=== PATIENT | female | born 1930 | race Caucasian/White ===

== ENCOUNTER 2018-11-15 11:18 | Emergency (ER) | payer BC ==
--- NOTE | 2018-11-15 12:44 | RAD ---
FOUR VIEWS RIGHT KNEE: 11/15/18 HISTORY: Right hip fracture. COMPARISON: None. FINDINGS: No fracture. No cortical irregularity or periosteal reaction. No joint effusion. Vascular calcificati ons are noted. IMPRESSION: No fracture. POS: OFF
[2018-11-15 13:44] LABS: #Eosinphils 0.1 thou/uL (0.0-0.7); #Lymphocytes 1.2 thou/uL (1.20-3.40); #Monocytes 1.5 thou/uL (0.11-0.59); #Neutrophils 11.3 thou/uL (1.40-6.50); %Basophils 0.3 % (0.0-1.0); %Eosinophils 0.5 % (0.0-10.0); %Lymphocytes 8.4 % (21.0-51.0); %Monocytes 10.5 % (0.0-10.0); %Neutrophils 80.3 % (42.0-75.0); Hemoglobin 9.7 g/dL (12.0-16.0); Mean Corpuscular HGB CONC 33.7 g/dL (32.0-36.0); Mean Corpuscular Hemoglobin 32.3 pg (27.0-31.0); Mean Corpuscular Volume 95.9 fL (78.0-98.0); Mean Platelet Volume 8.1 fL (7.4-10.4); Platelet Count 359 thou/uL (130-400); RBC Distribution Width 12.6 % (11.5-14.5); Red Blood Cell (RBC) Count 3.02 mill/uL (4.20-5.40); White Blood Cell (WBC) Count 14.1 thou/uL (4.8-10.8)
[2018-11-15 14:12] LABS: ALT (SGPT) 14 U/L (8-55); AST (SGOT) 32 U/L (5-34); Albumin 3.7 g/dL (3.4-4.8); Alkaline Phosphatase 156 U/L (40-150); Anion Gap 17 mmol/L (10-20); BUN (Urea Nitrogen) 19 mg/dL (9.8-20.1); Bilirubin, Total 0.4 mg/dL (0.2-1.2); Calc. Creatinine Clearance 0 mL/min (70-130); Calcium 9.6 mg/dL (7.8-10.44); Carbon Dioxide 21 mmol/L (23-31); Chloride 103 mmol/L (98-107); Estimated GFR-MDRD 57; Globulin 3.5 g/dL (2.4-3.5); Glucose 91 mg/dL (83-110); Potassium 4.2 mmol/L (3.5-5.1); Protein, Total 7.2 g/dL (6.0-8.3); Sodium 137 mmol/L (136-145)
[2018-11-15] MEDS ORDERED: HYDROcodone/Acetaminophen 5/325 mg Tablet ONE (14:49)
== END 2018-11-15 15:08 ==
LOC: ERS 11:18
DX: S72.102A Unspecified trochanteric fracture of left femur, initial encounter for closed fracture (principal); E03.9 Hypothyroidism, unspecified; I10 Essential (primary) hypertension; Z79.899 Other long term (current) drug therapy; W19.XXXA Unspecified fall, initial encounter
CPT/HCPCS: 36415; 80053; 85025; 86850; 86900; 86901; 99284

== ENCOUNTER 2018-11-24 11:09 | Inpatient (IN) | payer BC ==
[2018-11-24 11:53] LABS: #Eosinphils 0.1 thou/uL (0.0-0.7); #Monocytes 1.2 thou/uL (0.11-0.59); #Neutrophils 7.9 thou/uL (1.40-6.50); %Basophils 0.4 % (0.0-1.0); %Eosinophils 1.1 % (0.0-10.0); %Lymphocytes 10.1 % (21.0-51.0); %Monocytes 11.6 % (0.0-10.0); %Neutrophils 76.7 % (42.0-75.0); Hemoglobin 8.5 g/dL (12.0-16.0); Mean Corpuscular HGB CONC 32.6 g/dL (32.0-36.0); Mean Corpuscular Hemoglobin 30.8 pg (27.0-31.0); Mean Corpuscular Volume 94.5 fL (78.0-98.0); Mean Platelet Volume 7.5 fL (7.4-10.4); Platelet Count 385 thou/uL (130-400); RBC Distribution Width 12.9 % (11.5-14.5); Red Blood Cell (RBC) Count 2.77 mill/uL (4.20-5.40); White Blood Cell (WBC) Count 10.3 thou/uL (4.8-10.8)
[2018-11-24 12:13] LABS: ALT (SGPT) 20 U/L (8-55); AST (SGOT) 39 U/L (5-34); Albumin 3.2 g/dL (3.4-4.8); Alkaline Phosphatase 157 U/L (40-150); Anion Gap 13 mmol/L (10-20); BUN (Urea Nitrogen) 29 mg/dL (9.8-20.1); Bilirubin, Total 0.3 mg/dL (0.2-1.2); Calc. Creatinine Clearance 0 mL/min (70-130); Calcium 9.2 mg/dL (7.8-10.44); Carbon Dioxide 23 mmol/L (23-31); Chloride 105 mmol/L (98-107); Estimated GFR-MDRD 53; Globulin 3.3 g/dL (2.4-3.5); Glucose 115 mg/dL (83-110); Potassium 4.5 mmol/L (3.5-5.1); Protein, Total 6.5 g/dL (6.0-8.3); Sodium 136 mmol/L (136-145)
[2018-11-24] MEDS ORDERED: Ketorolac Tromethamine 60 MG/2 ML VIAL ONE (12:20)
[2018-11-24] MEDS ORDERED: Ketamine 50 MG/ML (10ML VIAL) ONE (12:22)
[2018-11-24 13:21] LABS: INR-International Normal Ratio 1.1; Prothrombin Time 13.9 SEC (12.0-14.7)
--- NOTE | 2018-11-24 13:21 | RAD ---
RIGHT HIP: Single portable AP projection obtained. INDICATION: Attempt at post reduction hip dislocation. FINDINGS/IMPRESSION: Right hip prosthesis is noted. There is dislocation of the hip joint components with superior disloca tion of the femoral component in relation to the acetabular component seen on the AP projection. POS: [facility]
[2018-11-24 13:22] LABS: PTT 30.4 SEC (22.9-36.1)
--- NOTE | 2018-11-24 13:23 | RAD ---
PORTABLE CHEST: Date: 11/24/18 HISTORY: Chest pain, shortness of breath. No comparison. FINDINGS: Mild cardiomegaly. Transvenous pacemaker leads appear adequately positioned. The lung [place] are yefri r of infiltrate. No evidence of vascular congestion or effusion. IMPRESSION: Cardiomegaly. No acute lung process. POS: [facility]
--- NOTE | 2018-11-24 13:24 | RAD ---
RIGHT HIP 1 VIEW: Date: 11/24/18 INDICATION: Post attempted reduction of hip dislocation. Comparison made to earlier film. FINDINGS/IMPRESSION: There continues to be dislocation of the right hip prosthesis, unchanged from earlier exam. POS: [facility]
[2018-11-24] MEDS ORDERED: Ondansetron PF 4 MG/2 ML Vial IV PRN (15:51)
[2018-11-24] MEDS ORDERED: HYDROcodone/Acetaminophen 5/325 mg Tablet PO PRN ×2 (15:51)
[2018-11-24] MEDS ORDERED: Morphine 4 MG/ML VIAL SLOW IVP PRN (15:51)
[2018-11-24] MEDS ORDERED: Communication Order-Pharmacy FS SCH (16:00)
[2018-11-24] MEDS ORDERED: Morphine 2 MG/ML SYRINGE IVP PRN (17:45)
[2018-11-24 18:26] VITALS: BMI 26.5
[2018-11-24] MEDS ORDERED: Prevnar 13-Val Conj/PF 0.5 ML SYRINGE IM ONE (21:00)
[2018-11-24] MEDS: Sodium Chloride 0.9% 1,000 ML IV SCH (23:38)
--- NOTE | 2018-11-25 08:45 | PDOC.HOSPP ---
- Subjective Encounter Date: 11/25/18 Encounter Time: 08:43 Subjective: Patient seen and examined for med mngt. No CP/SOB or palpitations. Follows Dr. Connelly. No new complaints. No overnight events - Objective Vital Signs & Weight: Vital Signs (12 hours) Temp Pulse Resp BP Pulse Ox 11/25/18 08:12 98.4 F 80 20 164/77 H 97 11/25/18 03:40 98.3 F 91 16 176/80 H 97 11/25/18 00:03 98.4 F 80 16 123/69 95 Weight Weight 145 lb 4.554 oz Result Diagrams: 11/24/18 11:30 11/24/18 11:30 EKG Reviewed by me: Yes (Paced) ROS - Review of Systems Respiratory: denies: cough, dry, shortness of breath, hemoptysis, SOB with excertion, pleuritic pain, sputum, wheezing, other Cardiovascular: denies: chest pain, palpitations, orthopnea, paroxysmal noc. dyspnea, edema, light headedness, other Gastrointestinal: denies: nausea, vomitting, abdominal pain, diarrhea, constipation, melena, hematochezia, other Genitourinary: denies: dysuria, frequency, incontinence, hematuria, retention, other - Medication Medications: Active Medications Generic Name Dose Route Start Last Admin Trade Name Freq PRN Reason Stop Dose Admin Sodium Chloride 1,000 mls @ 100 mls/hr 11/24/18 23:59 11/24/18 23:38 Normal Saline 0.9% IV 1,000 mls .Q10H MITCH Administration - Exam NAD Neck: supple, no JVD Heart: RRR, no gallops Respiratory: CTAB, no rales Gastrointestinal: soft, non-tender, non-distended, normal bowel sounds Extremities: no edema Hosp A/P (1) HTN (hypertension) Code(s): I10 - ESSENTIAL (PRIMARY) HYPERTENSION (2) HLD (hyperlipidemia) Code(s): E78.5 - HYPERLIPIDEMIA, UNSPECIFIED (3) CKD (chronic kidney disease) stage 3, GFR 30-59 ml/min Code(s): N18.3 - CHRONIC KIDNEY DISEASE, STAGE 3 (MODERATE) (4) Anxiety Code(s): F41.9 - ANXIETY DISORDER, UNSPECIFIED (5) Chronic anemia Code(s): D64.9 - ANEMIA, UNSPECIFIED (6) Status cardiac pacemaker - Plan incentive spirometry, DVT proph w/SCDs Resume Celexa Resume Levothyroxine CBC in AM Pain control per Anesthesia SCDs for DVT prophylaxis Add PRN meds Full code. DPOA - daughter
[2018-11-25] MEDS ORDERED: Labetalol HCl 100 MG/20 ML VIAL SLOW IVP PRN (08:47)
[2018-11-25] MEDS ORDERED: Polyethylene Glycol 3350 17 GM Packet PO PRN (08:47)
--- NOTE | 2018-11-25 08:59 | HP ---
HISTORY OF PRESENT ILLNESS: Ms. Parsons is an 88-year-old white female, who underwent a right total hip replacement on 11/01/2018. The patient did well postoperatively in the hospital. She went to rehab, where she got out of bed and was trying to reach in her closet and fell resulting in fracture of the right proximal femur. The patient was seen by me in the office. The hip was in good position and well located, proximal femur to heal. The patient apparently had another injury to the right hip earlier this morning and dislocated her hip. She was sent to the emergency room, where the hip was reduced, but then immediately redislocated. X-ray shows comminuted fracture of the proximal femur around the prosthesis with turning of the prosthesis indicating instability. The patient has no neurologic complaints in the right lower extremity. PAST MEDICAL HISTORY: ALLERGIES: NONE. CURRENT MEDICATIONS: 1. Premarin. 2. Citalopram. 3. Meloxicam. 4. Levothyroxine. PHYSICAL EXAMINATION: GENERAL: The patient is a very pleasant white female, alert and oriented x3. VITAL SIGNS: Blood pressure 125/65, pulse 76, respiratory rate 16, temperature 98.8. HEENT: Unremarkable for age. Cranial nerves 2 through 12 are grossly intact. NECK: Has good range of motion without pain. Thoracic lumbar spine, nontender to palpation. LUNGS: Clear bilaterally. HEART: Regular rate and rhythm. ABDOMEN: Soft and nontender. Bowel sounds positive. : Not done. EXTREMITIES: The patient is able to move both upper extremities without pain. The right lower extremity is shortened and externally rotated. Right lower extremity is neurovascularly intact. She is able to move her left lower extremity without pain except in the right hip region. LABORATORY DATA: CBC shows white count 10.3, hemoglobin 8.5, hematocrit 21.6. PT normal at 13.9 with INR of 1.1, PTT 30.4. Chemistries show a slightly elevated BUN of 29, creatinine is normal at 1.99, alkaline phosphatase high at 157. Albumin is slightly low at 3.2. Remaining values are normal. DIAGNOSTIC DATA: X-ray of the right hip shows fractures around the proximal aspect of the femur around the prosthesis. The femoral component is rotated and dislocated superiorly and posteriorly. IMPRESSION: Status post right total hip replacement, now with loose and dislocated femoral component. PLAN: The patient will be admitted for pain control. We will consult the hospitalist for medical evaluation and surgical clearance. As far as her right hip is concerned, the patient will require additional surgery. Plan on removing the proximal femur and revising that probably with a cemented proximal femoral component. Discussed the plans with the patient and her daughter and they agree. We will schedule surgery for tomorrow. Job ID: [id number]
[2018-11-25] MEDS ORDERED: ceFAZolin Sodium (SDC) 2 GM/100 ML BAG ONE (12:43)
[2018-11-25] MEDS ORDERED: Fentanyl 100 MCG/2 ML VIAL ONE (13:33)
[2018-11-25] MEDS ORDERED: Neomycin-Polymyxin 1 ML AMP ONE (13:34)
[2018-11-25] MEDS ORDERED: HYDROcodone/Acetaminophen 10/325 mg Tablet PO PRN (15:28)
[2018-11-25] MEDS ORDERED: Promethazine HCl 25 MG/ML VIAL IM PRN (15:31)
[2018-11-25] MEDS ORDERED: Promethazine HCl 25 MG/ML VIAL SLOW IVP PRN (15:31)
[2018-11-25] MEDS ORDERED: Ondansetron HCl/PF 4 MG/2 ML Vial IVP PRN (15:31)
[2018-11-25] MEDS ORDERED: TETANUS AND DIPHTHERIA TOX/PF 0.5 ML DISP.SYRIN IM SCH (16:00)
[2018-11-25] MEDS: Senokot S 8.6-50 MG TAB PO SCH ×2 (16:30→18:15)
[2018-11-25] MEDS: Citalopram 20 MG TAB PO SCH ×2 (16:30→18:39)
[2018-11-25] MEDS: Sodium Chloride 0.9% 1,000 ML IV SCH ×2 (16:30→19:56)
[2018-11-25] MEDS ORDERED: Bupivacaine HCl 0.5%/Epinephrine 1:200,000/PF 30 ml Vial ONE (16:57)
[2018-11-25] MEDS ORDERED: Ketorolac Tromethamine 30 MG/ML VIAL IVP SCH (18:00)
--- NOTE | 2018-11-25 18:00 | RAD ---
LEFT HIP: INDICATIONS: Imaging during surgical procedure for hip replacement. FINDINGS: Five fluoroscopic images from the OR are presented. These images show a left hip prosthesis, which appears adequately positioned. POS: [facility]
[2018-11-25] MEDS: Sodium Chloride 0.9% 100 ML IV SCH ×2 (19:57→19:58)
[2018-11-25] MEDS: traZODone HCl 50 MG TAB PO PRN (21:12)
--- NOTE | 2018-11-25 21:46 | OP ---
DATE OF PROCEDURE: 11/25/2018 PREOPERATIVE DIAGNOSIS: The patient is status post right total hip replacement with fracture of the right proximal femur and dislocation of the right hip. POSTOPERATIVE DIAGNOSIS: The patient is status post right total hip replacement with fracture of the right proximal femur and dislocation of the right hip with traumatic loosening of the femoral component. PROCEDURE: Revision right total hip replacement with replacement of the right proximal femur. ANESTHESIA: General. DESCRIPTION OF PROCEDURE: The patient was given preoperative IV antibiotics, taken to the operating room, placed in supine position. Satisfactory general anesthesia was performed. The patient was then placed in the left lateral decubitus position. All bony prominences were well padded. The right hip and lower extremity were sterilely prepped and draped in the usual fashion. A longitudinal incision was made over the lateral aspect of the hip over the previous incision that she had from a total hip replacement that was performed a little over 3 weeks ago. Blunt and sharp dissection was made down to the iliotibial band, which was divided longitudinally. The anterior fibers of the gluteus muscles were opened. The proximal femur was fractured and the femoral prosthesis was dislocated. The femoral stem was very loose and was able to be easily removed. The fracture of the proximal femur extended longitudinally down approximately 5 cm. The proximal femur was exposed. The acetabulum was inspected and was in good condition and in good position and did not need any additional treatment. The proximal femur was then reamed up to 15 mm. A DonJoy 15 mm x 130 mm distal stem, which was straight was placed into the proximal femur with excellent fit in the canal. It was very stable. A standard offset body with the 75-mm proximal belly with a neutral neck was inserted and different lengths were trialed and the patient had good leg length faith and good stability with the standard offset 75 mm proximal body and the 32 mm femoral head with a neutral neck. The trial was removed. The hip joint was copiously irrigated with antibiotic solution using the high-speed active directory engineer and the DonJoy implant was placed using the 75-mm proximal body with a standard offset. This was locked in with a bolt into the distal stem and the 32-mm neutral femoral head was impacted over this. The hip was reduced and placed through range of motion while observing the hip using the C-arm under fluoroscopy and showed good position of the prosthesis. A 1.7 mm cable was placed around the proximal femur and good stability and crimped. Excess cable was removed and #2 FiberWire was also used to bring the fracture closer together. Again, this was all reviewed with the C-arm with fluoroscopy and showed good positioning. The wound was then again copiously irrigated. It was closed using #2 Vicryl for the anterior fibers of the abductor muscles, #2 Vicryl for the iliotibial band, Vicryl for the fat and subcutaneous tissue, and skin was closed with skin vanessa. Sterile dressing was applied. The patient was then awakened, extubated, and transferred to recovery room in stable condition. ESTIMATED BLOOD LOSS: 400 mL. COMPLICATIONS: None. Job ID: [id number]
[2018-11-26] MEDS: Sodium Chloride 0.9% 1,000 ML IV SCH ×2 (06:28→17:46)
[2018-11-26] MEDS: Levothyroxine Sodium 25 MCG TAB PO SCH (06:40)
[2018-11-26] MEDS: HYDROcodone/Acetaminophen 10/325 mg Tablet PO PRN ×2 (06:40→20:40)
[2018-11-26 08:19] LABS: Hemoglobin 9.5 g/dL (12.0-16.0); Mean Corpuscular HGB CONC 33.7 g/dL (32.0-36.0); Mean Corpuscular Volume 95.1 fL (78.0-98.0); Mean Platelet Volume 6.9 fL (7.4-10.4); Platelet Count 290 thou/uL (130-400); Red Blood Cell (RBC) Count 2.95 mill/uL (4.20-5.40)
[2018-11-26] MEDS: Citalopram 20 MG TAB PO SCH (08:27)
[2018-11-26] MEDS: Senokot S 8.6-50 MG TAB PO SCH ×2 (08:33→20:42)
--- NOTE | 2018-11-26 11:00 | PDOC.HOSPP ---
- Subjective Encounter Date: 11/26/18 Encounter Time: 09:30 Subjective: Patient seen and examined for med mngt. No fever/chills/N/V. No new complaints. No overnight events - Objective Vital Signs & Weight: Vital Signs (12 hours) Temp Pulse Pulse Resp BP BP Pulse Ox 11/26/18 08:00 97 11/26/18 07:55 98.2 F 74 20 113/50 L 97 11/26/18 04:16 98 11/26/18 03:15 98.3 F 81 16 152/80 H 99 11/26/18 01:05 98.4 F 78 16 145/76 H 97 11/25/18 23:34 98.7 F 74 16 126/64 97 Weight Weight 145 lb 4.554 oz I&O: 11/25/18 11/26/18 11/27/18 06:59 06:59 06:59 Intake Total 1900 Output Total 550 Balance 1350 Result Diagrams: 11/27/18 04:49 11/24/18 11:30 ROS - Review of Systems Respiratory: denies: cough, dry, shortness of breath, hemoptysis, SOB with excertion, pleuritic pain, sputum, wheezing, other Cardiovascular: denies: chest pain, palpitations, orthopnea, paroxysmal noc. dyspnea, edema, light headedness, other - Medication Medications: Active Medications Generic Name Dose Route Start Last Admin Trade Name Freq PRN Reason Stop Dose Admin Hydrocodone Bitart/Acetaminophen 1 tab 11/25/18 15:28 11/25/18 21:12 [place] 10/325 PO 1 tab Q4H PRN Administration Moderate Pain (4-6) Hydrocodone Bitart/Acetaminophen 2 tab 11/25/18 15:28 11/26/18 06:40 [place] 10/325 PO 2 tab Q4H PRN Administration Severe Pain (7-10) Citalopram Hydrobromide 40 mg 11/25/18 09:00 11/26/18 08:27 Celexa PO 40 mg DAILY MITCH Administration Sodium Chloride 1,000 mls @ 100 mls/hr 11/24/18 23:59 11/26/18 06:28 Normal Saline 0.9% IV Not Given .Q10H MITCH Levothyroxine Sodium 25 mcg 11/26/18 06:00 11/26/18 06:40 Synthroid PO 25 mcg 0600 MITCH Administration Senna/Docusate Sodium 2 tab 11/25/18 09:00 11/26/18 08:33 Senokot S PO Not Given BID MITCH Trazodone HCl 50 mg 11/25/18 08:31 11/25/18 21:12 Desyrel PO 50 mg HSPRN PRN Administration Insomnia - Exam NAD Neck: supple, no JVD Heart: RRR, no gallops Respiratory: CTAB, no rales Gastrointestinal: soft, non-distended, normal bowel sounds Extremities: no edema Hosp A/P (1) HTN (hypertension) Code(s): I10 - ESSENTIAL (PRIMARY) HYPERTENSION (2) HLD (hyperlipidemia) Code(s): E78.5 - HYPERLIPIDEMIA, UNSPECIFIED (3) CKD (chronic kidney disease) stage 3, GFR 30-59 ml/min Code(s): N18.3 - CHRONIC KIDNEY DISEASE, STAGE 3 (MODERATE) (4) Anxiety Code(s): F41.9 - ANXIETY DISORDER, UNSPECIFIED (5) Chronic anemia Code(s): D64.9 - ANEMIA, UNSPECIFIED (6) Status cardiac pacemaker - Plan DVT proph w/lovenox Cont Celexa/Levothyroxine Pain control Cont other meds as above Cont PRN meds
[2018-11-26] MEDS: traZODone HCl 50 MG TAB PO PRN (20:40)
[2018-11-27] MEDS: Sodium Chloride 0.9% 1,000 ML IV SCH ×4 (01:56→22:01)
[2018-11-27 05:10] LABS: Hemoglobin 9.5 g/dL (12.0-16.0); Mean Corpuscular HGB CONC 34.1 g/dL (32.0-36.0); Mean Corpuscular Hemoglobin 32.6 pg (27.0-31.0); Mean Corpuscular Volume 95.7 fL (78.0-98.0); Mean Platelet Volume 7.1 fL (7.4-10.4); Platelet Count 290 thou/uL (130-400); RBC Distribution Width 13.2 % (11.5-14.5)
[2018-11-27] MEDS: Levothyroxine Sodium 25 MCG TAB PO SCH (06:19)
[2018-11-27] MEDS: Senokot S 8.6-50 MG TAB PO SCH ×2 (08:06→20:16)
[2018-11-27] MEDS: Citalopram 20 MG TAB PO SCH (08:06)
--- NOTE | 2018-11-27 09:25 | PDOC.HOSPP ---
- Subjective Encounter Date: 11/27/18 Encounter Time: 09:00 Subjective: Patient seen and examined for medical mngt. No CP/SOB. Pain controlled. No N/V or constipation. No new complaints. No overnight events - Objective Vital Signs & Weight: Vital Signs (12 hours) Temp Pulse Resp BP Pulse Ox 11/27/18 07:16 98.5 F 77 16 155/80 H 96 11/27/18 02:54 98.2 F 75 16 156/81 H 98 11/26/18 23:15 98 F 76 16 137/64 95 Weight Weight 145 lb 4.554 oz I&O: 11/26/18 11/27/18 11/28/18 06:59 06:59 06:59 Intake Total 1900 240 Output Total 550 1850 Balance 1350 -1610 Result Diagrams: 11/27/18 04:49 11/24/18 11:30 ROS - Review of Systems Respiratory: denies: cough, dry, shortness of breath, hemoptysis, SOB with excertion, pleuritic pain, sputum, wheezing, other Cardiovascular: denies: chest pain, palpitations, orthopnea, paroxysmal noc. dyspnea, edema, light headedness, other - Medication Medications: Active Medications Generic Name Dose Route Start Last Admin Trade Name Freq PRN Reason Stop Dose Admin Hydrocodone Bitart/Acetaminophen 1 tab 11/25/18 15:28 11/25/18 21:12 [place] 10/325 PO 1 tab Q4H PRN Administration Moderate Pain (4-6) Hydrocodone Bitart/Acetaminophen 2 tab 11/25/18 15:28 11/26/18 20:40 [place] 10/325 PO 2 tab Q4H PRN Administration Severe Pain (7-10) Citalopram Hydrobromide 40 mg 11/25/18 09:00 11/27/18 08:06 Celexa PO 40 mg DAILY MITCH Administration Sodium Chloride 1,000 mls @ 100 mls/hr 11/24/18 23:59 11/27/18 01:56 Normal Saline 0.9% IV Not Given .Q10H MITCH Levothyroxine Sodium 25 mcg 11/26/18 06:00 11/27/18 06:19 Synthroid PO 25 mcg 0600 MITCH Administration Senna/Docusate Sodium 2 tab 11/25/18 09:00 11/27/18 08:06 Senokot S PO Not Given BID MITCH Trazodone HCl 50 mg 11/25/18 08:31 11/26/18 20:40 Desyrel PO 50 mg HSPRN PRN Administration Insomnia - Exam NAD Neck: supple, no JVD Heart: RRR, no rubs Respiratory: CTAB, no rales Gastrointestinal: soft, non-tender, normal bowel sounds Extremities: no edema Hosp A/P (1) HTN (hypertension) Code(s): I10 - ESSENTIAL (PRIMARY) HYPERTENSION Status: Chronic (2) HLD (hyperlipidemia) Code(s): E78.5 - HYPERLIPIDEMIA, UNSPECIFIED Status: Chronic (3) CKD (chronic kidney disease) stage 3, GFR 30-59 ml/min Code(s): N18.3 - CHRONIC KIDNEY DISEASE, STAGE 3 (MODERATE) Status: Chronic (4) Anxiety Code(s): F41.9 - ANXIETY DISORDER, UNSPECIFIED Status: Chronic (5) Chronic anemia Code(s): D64.9 - ANEMIA, UNSPECIFIED Status: Chronic (6) Status cardiac pacemaker Status: Chronic - Plan DVT proph w/SCDs Cont home meds - Celexa/Levothyroxine Pain control per primary service Cont other meds as above
[2018-11-27] MEDS: traZODone HCl 50 MG TAB PO PRN (20:14)
[2018-11-27] MEDS: HYDROcodone/Acetaminophen 10/325 mg Tablet PO PRN (20:15)
[2018-11-28] MEDS: Levothyroxine Sodium 25 MCG TAB PO SCH (05:55)
[2018-11-28] MEDS: Citalopram 20 MG TAB PO SCH (07:47)
[2018-11-28] MEDS: Sodium Chloride 0.9% 1,000 ML IV SCH ×2 (07:49→09:05)
[2018-11-28] MEDS: Senokot S 8.6-50 MG TAB PO SCH ×2 (07:49→21:00)
--- NOTE | 2018-11-28 17:29 | PDOC.HOSPP ---
- Subjective Encounter Date: 11/28/18 Encounter Time: 07:00 Subjective: Pt seen for followup re: hypertension. Denies chest pain, shortness of breath, fevers or chills. - Objective Vital Signs & Weight: Vital Signs (12 hours) Temp Pulse Resp BP Pulse Ox 11/28/18 14:45 98.5 F 76 18 139/65 96 11/28/18 11:13 98.5 F 70 16 116/73 97 11/28/18 07:03 98.5 F 73 16 164/52 H 95 Weight Weight 145 lb 4.554 oz I&O: 11/27/18 11/28/18 11/29/18 06:59 06:59 06:59 Intake Total 240 750 Output Total 1850 600 Balance -1610 150 Result Diagrams: 11/27/18 04:49 11/24/18 11:30 Additional Labs: Labs and MARs reviewed by me ROS - Review of Systems Cardiovascular: denies: chest pain, palpitations, orthopnea, paroxysmal noc. dyspnea, edema, light headedness Gastrointestinal: denies: nausea, vomitting, abdominal pain, diarrhea, constipation, melena, hematochezia - Medication Medications: Active Medications Generic Name Dose Route Start Last Admin Trade Name Freq PRN Reason Stop Dose Admin Hydrocodone Bitart/Acetaminophen 1 tab 11/25/18 15:28 11/25/18 21:12 [place] 10/325 PO 1 tab Q4H PRN Administration Moderate Pain (4-6) Hydrocodone Bitart/Acetaminophen 2 tab 11/25/18 15:28 11/27/18 20:15 [place] 10/325 PO 2 tab Q4H PRN Administration Severe Pain (7-10) Citalopram Hydrobromide 40 mg 11/25/18 09:00 11/28/18 07:47 Celexa PO 40 mg DAILY MITCH Administration Sodium Chloride 1,000 mls @ 100 mls/hr 11/24/18 23:59 11/28/18 09:05 Normal Saline 0.9% IV Not Given .Q10H MITCH Levothyroxine Sodium 25 mcg 11/26/18 06:00 11/28/18 05:55 Synthroid PO 25 mcg 0600 MITCH Administration Senna/Docusate Sodium 2 tab 11/25/18 09:00 11/28/18 07:49 Senokot S PO Not Given BID MITCH Trazodone HCl 50 mg 11/25/18 08:31 11/27/18 20:14 Desyrel PO 50 mg HSPRN PRN Administration Insomnia - Exam NAD Eye: anicteric sclera ENT: normocephalic atraumatic Neck: supple Heart: RRR Respiratory: CTAB Gastrointestinal: soft Skin: normal turgor Musculoskeletal: no muscle wasting Musculoskeletal - other findings: s/p R hip surgery Psychiatric: normal affect Hosp A/P (1) HTN (hypertension) Code(s): I10 - ESSENTIAL (PRIMARY) HYPERTENSION Status: Chronic (2) CKD (chronic kidney disease) stage 3, GFR 30-59 ml/min Code(s): N18.3 - CHRONIC KIDNEY DISEASE, STAGE 3 (MODERATE) Status: Chronic - Plan plan discussed w/ family, PT/OT, out of bed/ambulate BP controlled. CKD stable.
[2018-11-28] MEDS: traZODone HCl 50 MG TAB PO PRN (21:44)
[2018-11-29] MEDS: Sodium Chloride 0.9% 1,000 ML IV SCH ×2 (02:05→08:57)
[2018-11-29] MEDS: Levothyroxine Sodium 25 MCG TAB PO SCH (05:25)
[2018-11-29] MEDS: Senokot S 8.6-50 MG TAB PO SCH (07:50)
[2018-11-29] MEDS: Citalopram 20 MG TAB PO SCH (07:51)
[2018-11-29 15:49] LABS: Bilirubin Negative (Negative); Blood, Urine Moderate (Negative); Glucose, Urine (Dipstick) Negative (Negative); Leukocyte Large (Negative); Nitrite Positive (Negative); Protein, Urine (Dipstick) 100 mg/dL (Neg-Trace)
[2018-11-29 15:50] LABS: Clarity Opaque (Clear)
[2018-11-29 16:03] LABS: Bacteria/HPF 2+ HPF (None Seen); WBC/HPF Greater Than 50 HPF (0-3)
[2018-11-29] MEDS: Acetaminophen 500 MG TAB PO PRN ×2 (16:29→21:29)
[2018-11-29] MEDS ORDERED: Melatonin 3 MG TAB PO PRN (16:32)
[2018-11-29] MEDS ORDERED: cefTRIAXone\\ROCEPHIN 1 GM in Sodium Chloride 0.9% 100 ML IVPB SCH (17:00)
--- NOTE | 2018-11-29 17:16 | PDOC.HOSPP ---
- Subjective Encounter Date: 11/29/18 Encounter Time: 17:14 Subjective: Pt seen for followup re: dysuria. c/o dysuria, which started today. No fevers. - Objective Vital Signs & Weight: Vital Signs (12 hours) Temp Pulse Resp BP Pulse Ox 11/29/18 16:11 99.2 F 84 16 125/63 93 L 11/29/18 11:18 98.5 F 81 16 122/69 96 11/29/18 07:13 98.0 F 78 16 169/77 H 96 Weight Weight 145 lb 4.554 oz I&O: 11/28/18 11/29/18 11/30/18 06:59 06:59 06:59 Intake Total 750 1450 Output Total 600 1625 Balance 150 -175 Result Diagrams: 11/27/18 04:49 11/24/18 11:30 Additional Labs: Labs and MARs reviewed by me ROS - Review of Systems Cardiovascular: denies: chest pain, palpitations, orthopnea, paroxysmal noc. dyspnea, edema, light headedness Gastrointestinal: denies: nausea, vomitting, abdominal pain, diarrhea, constipation, melena, hematochezia Genitourinary: reports: dysuria - Medication Medications: Active Medications Generic Name Dose Route Start Last Admin Trade Name Freq PRN Reason Stop Dose Admin Acetaminophen 500 mg 11/25/18 15:28 11/29/18 16:29 Tylenol PO 500 mg Q4H PRN Administration CINTRON/T > 101F/Mild Pain (1-3) Hydrocodone Bitart/Acetaminophen 1 tab 11/25/18 15:28 11/25/18 21:12 [place] 10/325 PO 1 tab Q4H PRN Administration Moderate Pain (4-6) Hydrocodone Bitart/Acetaminophen 2 tab 11/25/18 15:28 11/27/18 20:15 [place] 10/325 PO 2 tab Q4H PRN Administration Severe Pain (7-10) Citalopram Hydrobromide 40 mg 11/25/18 09:00 11/29/18 07:51 Celexa PO 40 mg DAILY MITCH Administration Sodium Chloride 1,000 mls @ 100 mls/hr 11/24/18 23:59 11/29/18 08:57 Normal Saline 0.9% IV Not Given .Q10H MITCH Ceftriaxone Sodium 1 gm/ 100 mls @ 200 mls/hr 11/29/18 17:00 11/29/18 16:30 Sodium Chloride IVPB 100 mls Q24HR MITCH Administration Levothyroxine Sodium 25 mcg 11/26/18 06:00 11/29/18 05:25 Synthroid PO 25 mcg 0600 MITCH Administration Senna/Docusate Sodium 2 tab 11/25/18 09:00 11/29/18 07:50 Senokot S PO Not Given BID MITCH Sodium Chloride 10 ml 11/24/18 15:51 11/29/18 16:30 Flush - Normal Saline IVF 10 ml PRN PRN Administration Saline Flush Trazodone HCl 50 mg 11/25/18 08:31 11/28/18 21:44 Desyrel PO 50 mg HSPRN PRN Administration Insomnia - Exam NAD Eye: anicteric sclera ENT: normocephalic atraumatic Neck: supple, no thyromegaly Heart: RRR, no rubs Respiratory: no wheezes, no rales Gastrointestinal: soft, non-tender Extremeties - other findings: s/p R hip surgery Skin: normal turgor Neurological: normal sensation to touch Musculoskeletal: normal tone Psychiatric: normal affect, normal behavior Hosp A/P (1) Dysuria Code(s): R30.0 - DYSURIA Status: Acute (2) HTN (hypertension) Code(s): I10 - ESSENTIAL (PRIMARY) HYPERTENSION Status: Chronic (3) CKD (chronic kidney disease) stage 3, GFR 30-59 ml/min Code(s): N18.3 - CHRONIC KIDNEY DISEASE, STAGE 3 (MODERATE) Status: Chronic - Plan plan discussed w/ family, PT/OT, out of bed/ambulate Urinalysis consistent with UTI, start ceftriaxone and follow cultures. BP controlled. Monitor vital signs and titrate antihypertensives as needed CKD stable.
[2018-11-29] MEDS: traZODone HCl 50 MG TAB PO PRN (21:29)
[2018-11-30] MEDS: Sodium Chloride 0.9% 1,000 ML IV SCH ×3 (03:13→15:00)
[2018-11-30] MEDS: Senokot S 8.6-50 MG TAB PO SCH ×2 (03:13→08:21)
[2018-11-30] MEDS: Levothyroxine Sodium 25 MCG TAB PO SCH (06:18)
[2018-11-30] MEDS: Citalopram 20 MG TAB PO SCH (08:20)
[2018-11-30] MEDS ORDERED: Estrogens, Conjugated 0.3 MG TAB PO SCH (09:00)
--- NOTE | 2018-11-30 11:18 | PDOC.HOSPP ---
- Subjective Encounter Date: 11/30/18 Encounter Time: 07:00 Subjective: Pt seen for followup re: UTI. Feels better, no complaints. - Objective Vital Signs & Weight: Vital Signs (12 hours) Temp Pulse Resp BP Pulse Ox 11/30/18 07:36 98.4 F 82 16 123/79 92 L 11/30/18 03:10 98 F 90 16 169/85 H 98 11/29/18 23:37 97.9 F 90 16 149/70 H 98 Weight Weight 145 lb 4.554 oz I&O: 11/29/18 11/30/18 12/01/18 06:59 06:59 06:59 Intake Total 1450 1790 Output Total 1625 1450 Balance -175 340 Result Diagrams: 11/27/18 04:49 11/24/18 11:30 Additional Labs: Labs and MARs reviewed by me ROS - Review of Systems Gastrointestinal: denies: nausea, vomitting, abdominal pain, diarrhea, constipation, melena, hematochezia Genitourinary: denies: dysuria, frequency, incontinence, hematuria, retention - Medication Medications: Active Medications Generic Name Dose Route Start Last Admin Trade Name Freq PRN Reason Stop Dose Admin Acetaminophen 500 mg 11/25/18 15:28 11/29/18 21:29 Tylenol PO 500 mg Q4H PRN Administration CINTRON/T > 101F/Mild Pain (1-3) Hydrocodone Bitart/Acetaminophen 1 tab 11/25/18 15:28 11/25/18 21:12 [place] 10/325 PO 1 tab Q4H PRN Administration Moderate Pain (4-6) Hydrocodone Bitart/Acetaminophen 2 tab 11/25/18 15:28 11/27/18 20:15 [place] 10/325 PO 2 tab Q4H PRN Administration Severe Pain (7-10) Citalopram Hydrobromide 40 mg 11/25/18 09:00 11/30/18 08:20 Celexa PO 40 mg DAILY MITCH Administration Estrogens Conjugated 0.3 mg 11/30/18 09:00 11/30/18 08:21 Premarin PO 0.3 mg DAILY MITCH Administration Sodium Chloride 1,000 mls @ 100 mls/hr 11/24/18 23:59 11/30/18 08:21 Normal Saline 0.9% IV Not Given .Q10H MITCH Ceftriaxone Sodium 1 gm/ 100 mls @ 200 mls/hr 11/29/18 17:00 11/29/18 16:30 Sodium Chloride IVPB 100 mls Q24HR MITCH Administration Levothyroxine Sodium 25 mcg 11/26/18 06:00 11/30/18 06:18 Synthroid PO 25 mcg 0600 MITCH Administration Senna/Docusate Sodium 2 tab 11/25/18 09:00 11/30/18 08:21 Senokot S PO Not Given BID MITCH Sodium Chloride 10 ml 11/24/18 15:51 11/29/18 16:30 Flush - Normal Saline IVF 10 ml PRN PRN Administration Saline Flush Trazodone HCl 50 mg 11/25/18 08:31 11/29/18 21:29 Desyrel PO 50 mg HSPRN PRN Administration Insomnia - Exam NAD Eye: anicteric sclera ENT: normocephalic atraumatic, moist mucosa Neck: supple Heart: RRR Respiratory: no rales, no ronchi Gastrointestinal: soft Extremities: no clubbing Skin: normal turgor Musculoskeletal - other findings: s/p R hip surgery Psychiatric: normal affect Hosp A/P (1) UTI (urinary tract infection) Status: Acute (2) HTN (hypertension) Code(s): I10 - ESSENTIAL (PRIMARY) HYPERTENSION Status: Chronic (3) CKD (chronic kidney disease) stage 3, GFR 30-59 ml/min Code(s): N18.3 - CHRONIC KIDNEY DISEASE, STAGE 3 (MODERATE) Status: Chronic - Plan continue antibiotics, PT/OT, out of bed/ambulate Continue ceftriaxone and follow cultures. BP controlled. CKD stable.
[2018-11-30 15:34] VITALS: BP 113/70; TEMP 98.8
== END 2018-11-30 16:45 | disposition home or self-care (01) | DRG 467 ==
LOC: ERS 11:09 → SURG A 12:50
PROVIDERS: ADMIT Orthopaedic Surgery; ATTEND Orthopaedic Surgery
PROC: 0SRR0JA Replacement of Right Hip Joint, Femoral Surface with Synthetic Substitute, Uncemented, Open Approach (ICD-10-PCS; principal; 2018-11-25)
PROC: 0SPR0JZ Removal of Synthetic Substitute from Right Hip Joint, Femoral Surface, Open Approach (ICD-10-PCS; 2018-11-25)
DX: T84.020A Dislocation of internal right hip prosthesis, initial encounter (principal); N39.0 Urinary tract infection, site not specified; M19.90 Unspecified osteoarthritis, unspecified site; E03.9 Hypothyroidism, unspecified; Y83.9 Surgical procedure, unspecified as the cause of abnormal reaction of the patient, or of later complication, without mention of misadventure at the time of the procedure; N18.3 Chronic kidney disease, stage 3 (moderate); I12.9 Hypertensive chronic kidney disease with stage 1 through stage 4 chronic kidney disease, or unspecified chronic kidney disease; F32.9 Major depressive disorder, single episode, unspecified; D64.9 Anemia, unspecified; Z95.0 Presence of cardiac pacemaker; Z79.899 Other long term (current) drug therapy; M97.01XA Periprosthetic fracture around internal prosthetic right hip joint, initial encounter
CPT/HCPCS: 36415; 36430; 71045; 76000; 81001; 85025; 85027; 85610; 85730; 86850; 86900; 86901; 87077; 87086; 87186; 90471; 90670; 93005; 99156; G0009; J0670; J0690; J0696; J1885; J3010; J3490; P9016